=== PATIENT | female | born 1965 | race Caucasian/White ===

== ENCOUNTER 2021-06-07 10:01 | Emergency (ER) | payer OTHER ==
[~2021-06-07] VITALS: Ht 162.6 cm; Wt 83.9 kg
[~2021-06-07 10:01] MED LIST: MOTRIN; MYLANTA; PEPTO BISMUL
[2021-06-07 10:21] VITALS: BP 177/67
--- NOTE | 2021-06-07 10:24 | NUR ---
pt ambulates to bed 12, c/o right ankle pain s/p trip and fall yesterday. denies loc.
--- NOTE | 2021-06-07 11:55 | NUR ---
Patient discharged with v/s stable. Written and verbal after care instructions given and explained. Patient verbalized understanding. Ambulatory with steady gait. All questions addressed prior to discharge. Advised to follow up with PMD.
== END 2021-06-07 11:55 | disposition home or self-care (01) ==
LOC: MED 10:01
DX: S93.401A Sprain of unspecified ligament of right ankle, initial encounter (principal); X58.XXXA Exposure to other specified factors, initial encounter; Y93.01 Activity, walking, marching and hiking; Y92.89 Other specified places as the place of occurrence of the external cause; Y99.8 Other external cause status
CPT/HCPCS: 73610; 99283

== ENCOUNTER 2023-12-28 16:49 | Inpatient (IN) | payer MEDICAID, OTHER ==
[~2023-12-28] VITALS: Ht 165.1 cm; Wt 88.7 kg
[2023-12-28 16:54] VITALS: BP 154/55; PULSE 116; RESP 18; TEMP 98.1; O2SAT 100
[2023-12-28 17:45] LABS: BASOPHILS % (AUTO) 0.5 % (0.0-2.0); EOSINOPHILS % (AUTO) 0.5 % (0.0-4.0); LYMPHOCYTES # (AUTO) 0.6 K/uL (2.5-16.5); MEAN CORPUSCULAR HEMOGLOBIN 18 pg (27-31); MEAN CORPUSCULAR HGB CONC 29 g/dL (33-37); MEAN CORPUSCULAR VOLUME 61.2 fL (80-94); MONOCYTES # (AUTO) 0.5 K/uL (0.8-1.0); MONOCYTES % (AUTO) 11.2 % (1.7-9.3); NEUTROPHILS # (AUTO) 2.9 K/uL (1.8-7.7); NEUTROPHILS % (AUTO) 71.8 % (42.2-75.2); PLATELET COUNT (AUTO) 197 K/uL (140-450); RED BLOOD CELL COUNT(AUTO) 2.17 MIL/uL (4.20-5.40); RED CELL DISTRIBUTION WIDTH 20.3 % (11.6-13.7)
[2023-12-28 17:49] LABS: HEMATOCRIT 13.3 % (36-48); HEMOGLOBIN 3.8 g/dL (12.0-16.0)
[2023-12-28 18:03] LABS: INR 1.05 (0.8-1.2); PARTIAL THROMBOPLASTIN TIME 23.6 secs (22-35.6)
[2023-12-28 18:10] LABS: ANION GAP 13.2 (8-16); CALCIUM 8.8 mg/dL (8.5-10.1); CREATININE 0.8 mg/dL (0.6-1.3); POTASSIUM 3.2 mmol/L (3.5-5.1)
[2023-12-28 19:19] LABS: ALBUMIN 3.4 g/dL (3.4-5.0); BILIRUBIN,DIRECT 0.2 mg/dL (0.0-0.3); TOTAL BILIRUBIN 0.5 mg/dL (0.0-1.0); TOTAL PROTEIN, SERUM 7.3 g/dL (6.4-8.2)
[2023-12-28] MEDS ORDERED: ZOLPIDEM 5 MG TAB PO PRN (19:25)
[2023-12-28 21:15] VITALS: PULSE 80; RESP 18; O2SAT 98
[2023-12-28] MEDS: hydrALAZINE 20 MG/ML VIAL IVP PRN (22:35)
[2023-12-29 04:00] VITALS: BP 136/63; PULSE 79; RESP 18; TEMP 97.3; O2SAT 98
[2023-12-29 08:00] VITALS: BP 134/67; PULSE 73; RESP 18; TEMP 97.5; O2SAT 100
[2023-12-29] MEDS: PANTOPRAZOLE 40 MG INJ VIAL IVP SCH (08:34)
[2023-12-29 10:13] LABS: BASOPHILS % (AUTO) 0.6 % (0.0-2.0); EOSINOPHILS # (AUTO) 0.1 K/uL (0-0.4); EOSINOPHILS % (AUTO) 1.1 % (0.0-4.0); HEMATOCRIT 25.3 % (36-48); HEMOGLOBIN 8.2 g/dL (12.0-16.0); LYMPHOCYTES # (AUTO) 1.1 K/uL (2.5-16.5); LYMPHOCYTES % (AUTO) 22.2 % (20.5-51.1); MEAN CORPUSCULAR HEMOGLOBIN 23 pg (27-31); MEAN CORPUSCULAR HGB CONC 32 g/dL (33-37); MEAN CORPUSCULAR VOLUME 69.8 fL (80-94); MONOCYTES # (AUTO) 0.5 K/uL (0.8-1.0); MONOCYTES % (AUTO) 9.8 % (1.7-9.3); NEUTROPHILS # (AUTO) 3.3 K/uL (1.8-7.7); NEUTROPHILS % (AUTO) 66.3 % (42.2-75.2); PLATELET COUNT (AUTO) 167 K/uL (140-450); RED BLOOD CELL COUNT(AUTO) 3.63 MIL/uL (4.20-5.40); RED CELL DISTRIBUTION WIDTH 25.8 % (11.6-13.7)
[2023-12-29 10:23] LABS: ALBUMIN 3.3 g/dL (3.4-5.0); ANION GAP 14.5 (8-16); CALCIUM 8.6 mg/dL (8.5-10.1); CARBON DIOXIDE 21.9 mmol/L (21-32); CREATININE 0.7 mg/dL (0.6-1.3); POTASSIUM 3.4 mmol/L (3.5-5.1); TOTAL BILIRUBIN 2.4 mg/dL (0.0-1.0)
[2023-12-29 10:40] LABS: HYPOCHROMASIA 2+
[2023-12-29 10:41] LABS: BURR CELLS 1+; HELMET CELLS 1+; OVALOCYTES 2+
[2023-12-29 12:00] VITALS: BP 139/69; PULSE 85; RESP 20; TEMP 98.5; O2SAT 100
[2023-12-29] MEDS: POTASSIUM CHLORIDE 10 MEQ TABER PO PRN (13:51)
[2023-12-29] MEDS: LOSARTAN 50 MG TAB PO SCH (13:51)
[2023-12-29] MEDS: IRON SUCROSE COMPLEX 100 MG/5 ML VIAL IVP SCH (15:42)
[2023-12-29 16:00] VITALS: BP 146/48; PULSE 85; RESP 18; TEMP 98.6; O2SAT 100
[2023-12-29 20:00] VITALS: BP 154/69; PULSE 77; PULSE 84; RESP 18; TEMP 97.3; O2SAT 98
[2023-12-30] VITALS: BP 146/68; PULSE 71; RESP 18; TEMP 97.4; O2SAT 9
[2023-12-30 04:00] VITALS: BP 155/78; PULSE 66; RESP 18; TEMP 97.3; O2SAT 98
[2023-12-30 07:14] LABS: HEMOGLOBIN 7.8 g/dL (12.0-16.0)
[2023-12-30 07:36] LABS: ALBUMIN 3.1 g/dL (3.4-5.0); ANION GAP 10.4 (8-16); CALCIUM 8.4 mg/dL (8.5-10.1); CARBON DIOXIDE 23.4 mmol/L (21-32); CREATININE 0.7 mg/dL (0.6-1.3); POTASSIUM 3.8 mmol/L (3.5-5.1); TOTAL PROTEIN, SERUM 6.6 g/dL (6.4-8.2)
[2023-12-30 07:37] LABS: HEMATOCRIT 24.5 % (36-48); MEAN CORPUSCULAR HEMOGLOBIN 22 pg (27-31); MEAN CORPUSCULAR HGB CONC 32 g/dL (33-37); MEAN CORPUSCULAR VOLUME 70.3 fL (80-94); PLATELET COUNT (AUTO) 167 K/uL (140-450); RED BLOOD CELL COUNT(AUTO) 3.49 MIL/uL (4.20-5.40); RED CELL DISTRIBUTION WIDTH 25.8 % (11.6-13.7); WHITE BLOOD COUNT (AUTO) 5.6 K/uL (4.8-10.8)
[2023-12-30 08:00] VITALS: BP 149/75; PULSE 92; PULSE 95; RESP 16; RESP 18; TEMP 97.7; O2SAT 100; O2SAT 95
[2023-12-30 08:25] LABS: EOSINOPHILS % (MANUAL) 1 % (0-4); LYMPHOCYTES % (MANUAL) 18 % (20-46); MONOCYTES % (MANUAL) 14 % (5-12); PLATELET ESTIMATE ADEQUATE
[2023-12-30 08:27] LABS: OVALOCYTES 1+
[2023-12-30 12:00] VITALS: BP_SYST 149; BP_SYST 151; BP_DIAS 68; BP_DIAS 75; PULSE 75; PULSE 95; RESP 16; RESP 17; TEMP 97.5; TEMP 97.7; O2SAT 100
[2023-12-30 16:00] VITALS: BP 146/48; PULSE 73; RESP 18; TEMP 98.6; O2SAT 100
[2023-12-30 20:00] VITALS: BP 137/84; PULSE 75; PULSE 77; RESP 16; TEMP 98.3; O2SAT 95
[2023-12-31] VITALS (7 sets, daily range): BP systolic 121–150; BP diastolic 56–76; PULSE 61–87; RESP 16–19; TEMP 97.4–98.2; O2SAT 95–100
[2023-12-31 07:29] LABS: BASOPHILS # (AUTO) 0.1 K/uL (0.00-0.22); BASOPHILS % (AUTO) 0.8 % (0.0-2.0); EOSINOPHILS # (AUTO) 0.2 K/uL (0-0.4); EOSINOPHILS % (AUTO) 3.1 % (0.0-4.0); HEMATOCRIT 26.5 % (36-48); HEMOGLOBIN 8.5 g/dL (12.0-16.0); LYMPHOCYTES # (AUTO) 2.3 K/uL (2.5-16.5); MEAN CORPUSCULAR HEMOGLOBIN 23 pg (27-31); MEAN CORPUSCULAR HGB CONC 32 g/dL (33-37); MEAN CORPUSCULAR VOLUME 70.5 fL (80-94); MONOCYTES # (AUTO) 0.8 K/uL (0.8-1.0); MONOCYTES % (AUTO) 11.4 % (1.7-9.3); NEUTROPHILS # (AUTO) 3.9 K/uL (1.8-7.7); NEUTROPHILS % (AUTO) 53.7 % (42.2-75.2); PLATELET COUNT (AUTO) 193 K/uL (140-450); RED BLOOD CELL COUNT(AUTO) 3.76 MIL/uL (4.20-5.40); RED CELL DISTRIBUTION WIDTH 26.8 % (11.6-13.7); WHITE BLOOD COUNT (AUTO) 7.3 K/uL (4.8-10.8)
[2023-12-31] MEDS: POLYETHYLENE GLYCOL 17 GM/PKT PO SCH (10:03)
[2024-01-01] VITALS: BP 153/62; PULSE 75; PULSE 76; RESP 18; TEMP 98
[2024-01-01 04:00] VITALS: BP 164/68; PULSE 75; PULSE 77; RESP 18; TEMP 98; O2SAT 98
[2024-01-01 06:48] LABS: BASOPHILS % (AUTO) 0.8 % (0.0-2.0); EOSINOPHILS # (AUTO) 0.2 K/uL (0-0.4); EOSINOPHILS % (AUTO) 3.2 % (0.0-4.0); HEMATOCRIT 26.6 % (36-48); HEMOGLOBIN 8.6 g/dL (12.0-16.0); LYMPHOCYTES # (AUTO) 1.8 K/uL (2.5-16.5); LYMPHOCYTES % (AUTO) 28.8 % (20.5-51.1); MEAN CORPUSCULAR HEMOGLOBIN 23 pg (27-31); MEAN CORPUSCULAR HGB CONC 32 g/dL (33-37); MEAN CORPUSCULAR VOLUME 72.2 fL (80-94); MONOCYTES # (AUTO) 0.6 K/uL (0.8-1.0); NEUTROPHILS # (AUTO) 3.6 K/uL (1.8-7.7); NEUTROPHILS % (AUTO) 57.2 % (42.2-75.2); PLATELET COUNT (AUTO) 178 K/uL (140-450); RED BLOOD CELL COUNT(AUTO) 3.69 MIL/uL (4.20-5.40); RED CELL DISTRIBUTION WIDTH 26.9 % (11.6-13.7); WHITE BLOOD COUNT (AUTO) 6.2 K/uL (4.8-10.8)
[2024-01-01 08:00] VITALS: BP 119/62; PULSE 82; RESP 18; RESP 19; TEMP 97.1; O2SAT 99
[2024-01-01 12:00] VITALS: BP 115/54; PULSE 90; RESP 18; TEMP 97.5; O2SAT 98
[2024-01-01] MEDS ORDERED: OMEP-303 PO (13:44)
[2024-01-01] MEDS ORDERED: FERR325E14 PO (13:45)
[2024-01-01] MEDS ORDERED: POLY17PD46 PO (13:45)
[2024-01-01 14:13] VITALS: BP 115/54; PULSE 90; RESP 18; TEMP 97.5
== END 2024-01-01 15:25 | disposition home or self-care (01) | DRG 663 ==
LOC: MED 16:49 → MTU 19:26
PROVIDERS: ADMIT Student in an Organized Health Care Education/Training Program; ATTEND Student in an Organized Health Care Education/Training Program
PROC: 30233N1 Transfusion of Nonautologous Red Blood Cells into Peripheral Vein, Percutaneous Approach (ICD-10-PCS; principal; 2023-12-28)
DX: D62 Acute posthemorrhagic anemia (principal); E87.6 Hypokalemia; I10 Essential (primary) hypertension; Z79.899 Other long term (current) drug therapy; Z90.49 Acquired absence of other specified parts of digestive tract
CPT/HCPCS: 36415; 36430; 71045; 80048; 80053; 80076; 82272; 83036; 83540; 83880; 84484; 85025; 85610; 85730; 86886; 86900; 86901; 86920; 87081; 93005; 99285; J0360; J1756; J2470; P9016

== ENCOUNTER 2024-01-26 07:38 | Day surgery (SDC) | payer MEDICAID ==
[~2024-01-26] VITALS: Ht 152.4 cm; Wt 86.2 kg
[~2024-01-26 07:38] MED LIST changes: +FERR325E14 PO; +OMEP-303 PO; +POLY17PD46 PO
[2024-01-26] MEDS ORDERED: MIDAZOLAM 2 MG/2 ML VIAL ONE ×2 (08:28)
[2024-01-26] MEDS ORDERED: fentaNYL citrate 0.05 MG/ML VIAL ONE (08:28)
[2024-01-26] MEDS: MIDAZOLAM 2 MG/2 ML VIAL IVP ONE (08:48)
[2024-01-26] MEDS: fentaNYL citrate 0.05 MG/ML VIAL IVP ONE (08:49)
[2024-01-26] MEDS: LIDOCAINE 2% 100 MG/5 ML UJET TP ONE (09:07)
== END 2024-01-26 10:30 | disposition home or self-care (01) ==
LOC: MDS 07:38 → MMU 07:38 → MDS 10:30
PROVIDERS: ATTEND Internal Medicine Gastroenterology
DX: D50.0 Iron deficiency anemia secondary to blood loss (chronic) (principal); K57.30 Diverticulosis of large intestine without perforation or abscess without bleeding; K22.2 Esophageal obstruction; K44.9 Diaphragmatic hernia without obstruction or gangrene; I10 Essential (primary) hypertension; K21.9 Gastro-esophageal reflux disease without esophagitis; Z98.891 History of uterine scar from previous surgery; Z79.899 Other long term (current) drug therapy; Z98.890 Other specified postprocedural states
CPT/HCPCS: 36415; 43239; 45378; 86677; J2250; J3010